=== PATIENT | male | born 1950 | race Caucasian/White ===

== ENCOUNTER 2023-07-22 14:08 | Inpatient (IN) | payer MEDICARE, SELFPAY ==
[2023-07-22] VITALS (14 sets, daily range): BP systolic 125–168; BP diastolic 65–95; PULSE 79–161; RESP 18–30; TEMP 36.6–37.6; O2SAT 92–97; BMI 19.5
--- NOTE | 2023-07-22 | ECG_ITS ---
Test Reason : REPEAT Blood Pressure : / mmHG Vent. Rate : 079 BPM Atrial Rate : 079 BPM P-R Int : 142 ms QRS Dur : 112 ms QT Int : 388 ms P-R-T Axes : 081 043 074 degrees QTc Int : 444 ms Sinus rhythm with Premature atrial complexes Right bundle branch block Abnormal ECG When compared with ECG of 22-JUL-2023 14:28, Normal sinus rhythm has replaced Atrial flutter with 2 to 1 block Referred By: Misty Harry Electronically Signed By:POLLY COY MD
--- NOTE | ~2023-07-22 | XR_ITS ---
EXAMINATION: XR CHEST CLINICAL INFORMATION: Shortness of breath. COMPARISON: None available. TECHNIQUE: AP view of the chest was obtained. XR/XR chest 1V FINDINGS/IMPRESSION: The lungs may be hyperinflated, raising the possibility of COPD. Mild diffuse interstitial prominence. It is uncertain whether this represents artifactual crowding of the interstitium versus true infiltrate. No focal infiltrate, effusion, or pneumothorax is appreciated. The heart appears normal in size. The aorta is mildly atherosclerotic.
--- NOTE | ~2023-07-22 | CT_ITS ---
EXAMINATION: CT ANGIOGRAM OF THE CHEST WITH AND WITHOUT CONTRAST (CT PULMONARY ANGIOGRAM FOR PE) CLINICAL INFORMATION: Reason for Exam hypoxia, tachycardia, elevated WBC count COMPARISON: None available. TECHNIQUE: Prior to contrast administration, noncontrast localization images were obtained. Subsequently, multidetector volumetric imaging was performed from the thoracic inlet to below the diaphragms following the administration of 65 mL Omnipaque 350 intravenous contrast. No contrast reaction reported Sagittal, coronal, and MIP oblique sagittal reformatted images were obtained on the CT workstation, uploaded to PACS, and reviewed. This CT examination was performed using dose optimization techniques as appropriate, variously including the following: *Automated exposure control *Adjustment of mA and/or kV according to patient size (this includes techniques or standardized protocols for targeted exams where dose is matched to indication/reason for exam; i.e. extremities or head) *Use of iterative reconstruction technique Total exam dose-length product 109 mGy-cm FINDINGS: QUALITY OF STUDY/CONTRAST BOLUS: Satisfactory. PULMONARY ARTERIES: No pulmonary emboli. THORACIC AORTA: No aneurysm. LUNG: Moderate to severe centrilobular and paraseptal emphysema. Bilateral bronchial wall thickening. Multiple foci of occlusive debris within peripheral bronchi as well as associated small regions of interstitial and airspace disease most notably involving the right middle and left lower lobe and, to a lesser extent, the right lower lobe. No suspicious lung nodule identified. PLEURA: No pleural effusion or pneumothorax. MEDIASTINUM: Normal heart size. No pericardial effusion. 1.2 cm subcarinal node and 1.2 cm right hilar node (image 34, series 7). 1.2 cm AP window node (image 30, series 7). 1.1 cm left hilar node (image 41). No evidence of septal bowing or right heart strain. CORONARY ARTERY CALCIFICATION: None visualized on this study. CHEST WALL/AXILLA: No axillary or internal mammary lymphadenopathy by size criteria. OSSEOUS STRUCTURES: No acute or suspicious osseous abnormality. UPPER ABDOMEN: Unremarkable. No reflux of contrast into the hepatic veins to suggest elevated right heart pressures. CT/CT angio chest PE protocol IMPRESSION: No evidence of pulmonary embolism. Moderate to severe centrilobular and paraseptal emphysema. Bilateral bronchial wall thickening. Multiple foci of occlusive debris within peripheral bronchi, suggesting aspirated material and/or inspissated secretions. Associated small regions of interstitial and airspace disease most notably involving the right middle and left lower lobe and, to a lesser extent, the right lower lobe, suggesting infiltrates and/or atelectasis. Mild mediastinal and bilateral hilar adenopathy, probably reactive. VTE: negative
--- NOTE | 2023-07-22 14:37 | PC.NURSE ---
Pt awake, alert and oriented. Breathing even, noted to be slightly labored with talking for long periods. Skin warm to the touch, rectal temp taken and is 99.6. Pt placed on bedside dot compliance specialist, noted to be sinus tach around 160. Pt reports SOB over the past few days worsening with exertion, hx of COPD no home O2. Pt reports recent fevers and cough with yellow sputum. Provider made aware of situation and vital signs immediately.
[2023-07-22] MEDS: Acetaminophen 325 MG TABLET 650 MG PO (14:58)
[2023-07-22 14:59] LABS: MANUAL DIFF FLAG NO
[2023-07-22] MEDS: methylPREDNISolone Sod Succ 125 MG/2 ML VIAL 60 MG IVPUSH (14:59)
[2023-07-22 15:00] LABS: Venous Blood Gas Refer to POC result
[2023-07-22] MEDS: levalbuterol HCL 1.25 MG/3 ML VIAL.NEB INHALE (15:00)
[2023-07-22] MEDS: cefTRIAXone sodium 1 GM in 0.9 % Sodium Chloride 50 ML IV (15:00)
[2023-07-22 15:01] LABS: Basophils Absolute Auto 0.1 X10*3/uL (0.0-0.2); Basophils Percent Auto 0.3 % (0-2); Eosinophils Percent Auto 0.1 % (0-4); Hematocrit 44.9 % (42.0-52.0); Hemoglobin 14.8 g/dl (14.0-18.0); Imm Gran Abs Auto 0.07 X10*3/uL (0.00-0.03); Imm Gran Pct Auto 0.4 % (0.0-0.4); Lymphocytes Absolute Auto 1.3 X10*3/uL (1.2-4.9); Lymphocytes Percent Auto 7.9 % (20-40); Mean Corpuscular Hemoglobin 28.4 pg (27.0-33.0); Mean Platelet Volume 11.5 fL (9.4-12.4); Monocytes Absolute Auto 1.4 X10*3/uL (0.1-1.2); Monocytes Percent Auto 8.4 % (2-11); Neutrophils Absolute Auto 13.6 x10*3/uL (2.0-8.3); Neutrophils Percent Auto 82.9 % (45-73); Platelet Count 205 X10*3/uL (160-400); Red Blood Count 5.22 X10*6/uL (4.60-5.80); Red Cell Distribution Width 15.9 % (11.0-16.0); VBG Base Excess 3.8 mmol/L; VBG HCO3 30 mmol/L (22-26); VBG pCO2 49 mmHg; VBG pH 7.38 (7.32-7.43); VBG pO2 49 mmHg; White Blood Count 16.4 X10*3/uL (4.8-10.8)
[2023-07-22] MEDS: 0.9 % Sodium Chloride 1,000 ML 999 ML IVCONT (15:02)
[2023-07-22 15:08] LABS: INTERNATIONAL NORM RATIO 1.2 (0.9-1.1); Prothrombin Time 14.3 SEC (11.1-13.3)
[2023-07-22 15:17] LABS: Lactic Acid 1.8 mmol/L (0.5-2.0)
[2023-07-22] MEDS: Metoprolol Tartrate 5 MG/5 ML VIAL 2.5 MG IVPUSH (15:22)
[2023-07-22 15:27] LABS: B Type Natriuretic Peptide 74 pg/mL (<100)
--- NOTE | 2023-07-22 15:27 | ECG_ITS ---
Test Reason : Tachy Blood Pressure : / mmHG Vent. Rate : 158 BPM Atrial Rate : 158 BPM P-R Int : 142 ms QRS Dur : 120 ms QT Int : 316 ms P-R-T Axes : 106 254 047 degrees QTc Int : 512 ms Poor data quality Possible Atrial flutter with 2 to 1 block Pulmonary disease pattern Right bundle branch block Abnormal ECG No previous ECGs available Referred By: Misty Harry Electronically Signed By:POLLY COY MD
[2023-07-22 15:29] LABS: COVID-19 Test Negative (Negative); IDNOW Serial# 08D9AD1C; Troponin-I High Sensitivity 16.5 ng/L (<3.5-35.0)
[2023-07-22 15:31] LABS: Alanine Aminotransferase 16 U/L (0-40); Albumin Level 3.5 g/dL (3.5-5.0); Alkaline Phosphatase 63 U/L (39-117); Anion Gap 17 (12-20); Aspartate Amino Transferase 15 U/L (5-37); Bilirubin Direct 0.2 mg/dL (0.0-0.5); Bilirubin Total 0.5 mg/dL (0.0-1.0); Blood Urea Nitrogen 22 mg/dL (9-16); Calcium 9.5 mg/dL (8.4-10.2); Carbon Dioxide 24 mmol/L (22-29); Chloride 98 mmol/L (96-108); Creatinine Clr Calc Pharmacy 73.3; Estimated Glomerular Filt Rate > 60; Glucose Random 120 mg/dL (60-115); Lipase 6 U/L (8-78); Sodium 135 mmol/L (135-145); Total Protein 7.3 g/dL (6.5-8.0)
[2023-07-22 15:32] LABS: IDNOW Serial# 9DB6401D; Influenza A Negative (Negative); Influenza B2 Negative (Negative)
[2023-07-22 15:43] LABS: TSH reflex Free T4 1.81 uIU/mL (0.32-4.0)
--- NOTE | 2023-07-22 15:51 | ED_ITS ---
HPI - SOB/Dyspnea General Chief Complaint: Dyspnea Stated Complaint: prod cough,low sat 80's ra,93% 6lpm,warm per ems Time Seen by Provider: 07/22/23 14:32 Source: patient and family Mode of arrival: EMS Limitations: no limitations History of Present Illness HPI Narrative: 73 yo male with PMH of emphysema who just saw a doctor for the first time in 10 years who comes in with c/o worsening cough, sputum, shortness of breath after starting trelegy trial from PCP (also started chantix). Has malaise and weakness does not feel well and feels he is getting worse. He cannot feel a rapid heart beat and has not had known issues with the heart. No sick contacts, no travel. He has never felt this ill before. RA sats 86% with EMS has not used home O2 before. MD elicited complaint: shortness of breath, cough and asthma attack Pertinent past history: COPD Onset (ago): week(s) Timing: progressively worsening Severity: moderate Exacerbating factors: exertion and coughing Relieving factors: oxygen, rest and bronchodilators Known history of: COPD Associated symptoms: cough, wheezing and sputum production Treatment prior to arrival: oxygen and bronchodilator Related Data Allergies Allergy/AdvReac Type Severity Reaction Status Date / Time No Known Allergies Allergy Verified 07/22/23 14:32 Review of Systems 2 Review of Systems: Constitutional : No Fever, No Chills, pos malaise ENT/Mouth : No Hoarseness, No sore throat, No Rhinorrhea Eyes: No Redness, No Discharge, No Vision Changes Cardiovascular : No Chest Pain, positive SOB, positive Dyspnea on Exertion, No Edema Respiratory : positive Cough, pos Sputum, positive Wheezing, Gastrointestinal : No Nausea, No Vomiting, No Diarrhea, No abdominal Pain Genitourinary : No Dysuria, No Hematuria Musculoskeletal : No joint pain, No Myalgias Skin : No rash Neuro : pos Weakness, No Numbness, No Headache Psych : No anxiety, depression Heme/Lymph: No Bruising, No Bleeding Endocrine : No Polyuria, No Polydipsia All other systems reviewed and are negative [facility] Past Medical History Attestation statement: The following information was validated with the patient. Medical History Emphysema lung Social History Social History (Updated 07/22/23 @ 15:52 by iMsty Harry DO) Patient Tobacco Use Status: Current everyday Tobacco user Smoked in Last 30 Days: Yes Use of substances other than those prescribed or required for medical reasons: No Advance Directives: No Advance Directives Information Provided: No Physical Exam 2 Vital Signs: Vital Signs: Last Vital Signs Temp 98.1 F 07/22/23 15:17 Pulse 84 07/22/23 16:54 Resp 24 H 07/22/23 15:59 BP 140/73 H 07/22/23 16:54 Pulse Ox 95 07/22/23 16:54 O2 Del Method Nasal Cannula 07/22/23 16:54 O2 Flow Rate 3 07/22/23 16:54 Oxygen Flow Rate 2 07/22/23 14:25 BMI result Body Mass Index 19.5 Appearance: Alert. Oriented X3. Mild acute distress. Eyes: Pupils equal, round and reactive to light. ENT: Pharynx normal. Neck: Normal inspection. Neck supple. CVS: tachycardic heart rate and rhythm. Pulses normal. Respiratory: Mild respiratory distress tachypnea and retractions. Breath sounds diminished throughout with insp and exp wheezes Abdomen: Soft and non-tender. Skin: Skin warm and dry. pale skin color. Normal skin turgor. Extremities: No lower extremity edema. No calf ttp Neuro: Oriented X 3. No motor deficit. No sensory deficit. Course Course Course Narrative: excellent response to low dose lopressor 2.5mg IV Medications Administered Discontinued Medications Generic Name Dose Route Start Last Admin Trade Name Freq PRN Reason Stop Dose Admin Acetaminophen 650 mg 07/22/23 14:34 07/22/23 14:58 Acetaminophen 325 Mg Tablet PO 07/22/23 14:35 650 mg ONCE ONE Administration Sodium Chloride 1,000 mls @ 999 mls/hr 07/22/23 14:45 07/22/23 15:02 Ns IVCONT 07/22/23 15:45 999 mls/hr .Q1H1M TEJ Administration Ceftriaxone Sodium 1 gm/ 50 mls @ 100 mls/hr 07/22/23 14:34 07/22/23 15:58 Sodium Chloride IV 07/22/23 15:03 Infused ONCE ONE Infusion Iohexol 65 ml 07/22/23 16:33 07/22/23 16:34 Iohexol 350 Mg/Ml 100 Ml Infus..Btl IV 07/22/23 16:34 65 ml ONCE ONE Administration Levalbuterol HCl 1.25 mg 07/22/23 14:43 07/22/23 15:00 Levalbuterol Hcl 1.25 Mg/3 Ml Vial.Neb INHALE 07/22/23 14:44 1.25 mg ONCE ONE Administration Methylprednisolone Sodium Succinate 60 mg 07/22/23 14:43 07/22/23 14:59 Methylprednisolone Sod Succ 125 Mg/2 Ml Vial IVPUSH 07/22/23 14:44 60 mg ONCE ONE Administration Metoprolol Tartrate 2.5 mg 07/22/23 15:11 07/22/23 15:22 Metoprolol Tartrate 5 Mg/5 Ml Vial IVPUSH 07/22/23 15:12 2.5 mg ONCE ONE Administration Medical Decision Making Medical Decision Making [facility] Narrative: 73 yo male smoker has not seen a doctor in 10 years - just saw PCP who started him on trial of trelegy and chantix last week notes now increased dyspnea, sputum production and malaise. He reports he just doesn't feel well. At this time labs, CXR, cultures, neb, IV steroids, IV fluids - IV lopressor for HR has no hx of arrhythmia. IV ceftriaxone and azithromycin ordered. Given tachycardia and smoking history will obtain CTA to rule out PE/malignancy Differential Diagnosis Differential Diagnoses: The differential diagnosis associated with the presentation includes COPD, hypoxia, PE, mass, pneumonia, viral syndrome Admission/Observation Consideration of admission/observation: Escalation of care including admission/observation considered will need admission for further management and workup Lab Data [facility] Lab Attestation statement: I reviewed the patient's lab results. 07/22/23 14:54 07/22/23 14:54 Labs: Lab Results 07/22/23 Range/Units 14:54 WBC 16.4 H (4.8-10.8) X10*3/uL RBC 5.22 (4.60-5.80) X10*6/uL Hgb 14.8 (14.0-18.0) g/dl Hct 44.9 (42.0-52.0) % MCV 86.0 (80.0-98.0) fL MCH 28.4 (27.0-33.0) pg MCHC 33.0 (31.0-36.0) g/dl RDW 15.9 (11.0-16.0) % Plt Count 205 (160-400) X10*3/uL MPV 11.5 (9.4-12.4) fL Immature Gran % (Auto) 0.4 (0.0-0.4) % Neut % (Auto) 82.9 H (45-73) % Lymph % (Auto) 7.9 L (20-40) % [place] % (Auto) 8.4 (2-11) % Eos % (Auto) 0.1 (0-4) % Baso % (Auto) 0.3 (0-2) % Lymph # (Auto) 1.3 (1.2-4.9) X10*3/uL [place] # (Auto) 1.4 H (0.1-1.2) X10*3/uL Eos # (Auto) 0.0 (0.0-0.4) X10*3/uL Baso # (Auto) 0.1 (0.0-0.2) X10*3/uL Abs Immat Gran (auto) 0.07 H (0.00-0.03) X10*3/uL Absolute Neuts (auto) 13.6 H (2.0-8.3) x10*3/uL Absolute Nucleated RBC 0.000 (0.0-0.012) X10*3/uL Nucleated RBC % (auto) 0.0 (0.0-0.2) /100WBC PT 14.3 H (11.1-13.3) SEC INR 1.2 H (0.9-1.1) VBG pH 7.38 (7.32-7.43) VBG pCO2 49 mmHg VBG pO2 49 mmHg VBG HCO3 30 H (22-26) mmol/L VBG O2 Saturation 78.0 % VBG Base Excess 3.8 mmol/L Sodium 135 (135-145) mmol/L Potassium 4.0 (3.3-5.1) mmol/L Chloride 98 (96-108) mmol/L Carbon Dioxide 24 (22-29) mmol/L Anion Gap 17 (12-20) BUN 22 H (9-16) mg/dL Creatinine 0.85 (0.5-1.4) mg/dL Estim Creat Clear Calc 73.3 Estimated GFR > 60 Random Glucose 120 H (60-115) mg/dL Lactic Acid 1.8 (0.5-2.0) mmol/L Calcium 9.5 (8.4-10.2) mg/dL Magnesium 2.0 (1.6-2.6) mg/dL Total Bilirubin 0.5 (0.0-1.0) mg/dL Direct Bilirubin 0.2 (0.0-0.5) mg/dL AST 15 (5-37) U/L ALT 16 (0-40) U/L Alkaline Phosphatase 63 (39-117) U/L Troponin I High Sens 16.5 (<3.5-35.0) ng/L B-Natriuretic Peptide 74 (<100) pg/mL Total Protein 7.3 (6.5-8.0) g/dL Albumin 3.5 (3.5-5.0) g/dL Lipase 6 L (8-78) U/L Procalcitonin 0.79 ng/mL TSH 1.81 (0.32-4.0) uIU/mL COVID-19 (DEE) Negative (Negative) COVID-19 Clin Com See Note Influenza Type A (DILLON) Negative (Negative) Influenza Type B (DILLON) Negative (Negative) Influenza A & B Note See Note Independent Interpretation I performed an independent interpretation of an: EKG, Plain X-Ray (?RLL opacity) and CT Scan (no saddle) Interpretation: Rate: 158 Rhythm: sinus tach [place]: left Normal P waves. Normal SHANTHI. RBBB ST T wave : lateral leads ST depression, no RANDY qTC: 512 prior studies: no prior The study has been interpreted contemporaneously by me. EKG #2 Rate: 79 Rhythm: NSR with sinus arrhythmia [place]: left Normal P waves. Normal SHANTHI. RBBB ST T wave : inverted t wave aVL, no RANDY qTC: 444 prior studies: no acute ischemia The study has been interpreted contemporaneously by me. . Radiology Impression Discussion of test interpretation with radiology: I have reviewed the radiologist's reading. Independent Historian Clinical information obtained from an independent historian. History obtained from or confirmed by: Spouse Critical Care Time Critical Care Time Critical Care Time: Yes Total Critical Care Time: 60 Attestation: nebs, IVF, IV lopressor improvements, admission I attest to this time spent taking care of the patient Discharge Plan Discharge Clinical Impression: Tachycardia, Hypoxia COPD (chronic obstructive pulmonary disease) Qualifiers: COPD type: emphysema Emphysema type: unspecified Qualified Code(s): J43.9 - Emphysema, unspecified Elevated WBC count Qualifiers: Leukocytosis type: unspecified Qualified Code(s): D72.829 - Elevated white blood cell count, unspecified Patient Disposition: Admitted As Inpatient
--- NOTE | 2023-07-22 16:00 | PC.NURSE ---
Pt alert and oriented, breathing more even and unlabored at this time. +cough and congestion noted. Pt continues to deny pain. Pts HR improved to 80s, NSR. Medicated per AUG.
[2023-07-22] MEDS: iohexoL 350 MG/ML 100 ML INFUS..BTL 65 ML IV (16:34)
[2023-07-22 16:45] LABS: Procalcitonin 0.79 ng/mL
[2023-07-22 17:03] LABS: Appearance Urine Clear; Color Urine Dark Yellow; Glucose Urine UA Negative (Negative); Leukocyte Esterase Urine Negative (Negative); Nitrite Urine Negative (Negative); PH 5.5 (5.0-9.0); UMIC TRIGGER UACC YES; Urine Blood Negative (Negative); Urine Ketones 15 mg/dL (Negative); Urine Protein 30 (1+) mg/dL (Neg-Trace)
[2023-07-22 17:15] LABS: Bacteria Urine None Seen (None Seen); RBC Urine 0-2 /HPF (0-2); WBC Urine 0-5 /HPF (0-5)
--- NOTE | 2023-07-22 18:26 | PHA.MEDREC ---
Pharmacy Consult ? Medication Reconciliation Pharmacy has completed the medication reconciliation. Pt endorses nicotine patch and gum when not smoking.
--- NOTE | 2023-07-22 18:29 | PM.IMHP ---
History of Present Illness Date of Service: 07/22/23 Attending physician on admission: Nellie Al Chief Complaint: SOB, cough, malaise Pt is a 73-year-old male with no significant PHM though only recently saw PCP for the first time in 10+ years who presents to the ED with?worsening SOB, productive cough, and malaise. Patient states a few weeks ago he saw a PCP for the 1st time in many years, and was started on a 14 day trial of Trelegy for suspected COPD. Patient is a lifelong smoker who started smoking at 13 years old and has an approximately 120+ pack-year smoking history. Patient states that a few days after starting Trelegy he began having worsening SOB and cough with increased mucus production. Patient immediately stopped using inhaler the symptoms continue to worsen. Patient states he has not been sleeping due to cough and feeling increased weakness and malaise. Reports he is never felt this ill before. EMS state patient was satting at 86% on RA when they arrived. Patient is not on home O2. Patient denies fever, chills, nausea, vomiting, abdominal pain. Denies chest pain/pressure, palpitations In the ED pt was tachycardic up to 161, tachypneic up to 30, and hypertensive up to 166/65, satting as low as 86% on RA. Labs were significant for leukocytosis of 16.4 otherwise grossly unremarkable. Stable H& H. No electrolyte abnormalities. Renal function WNL. Lactic acid WNL at 1.8. Hepatic function WNL. Troponin and BNP WNL. TSH WNL. Patient tested negative for COVID, and influenza type a and B. CXR showed hyperinflated lungs possibly secondary to COPD, though no focal infiltrate, effusion, or pneumothorax. CTA of chest found no evidence of PE, but did show moderate to severe central lobular and paraseptal emphysema, as well as bilateral bronchial wall thickening with multiple foci of occlusive debris suggesting aspirin material and or in suspected secretions. Also found areas of interstitial and airspace disease suggestive of infiltrates and/or atelectasis. Initial EKG demonstrated sinus tachycardia of 158 with RBBB while repeat EKG showed sinus rhythm with marked sinus arrhythmia and RBBB. Pt was treated with acetaminophen, Solu-Medrol, ceftriaxone, and azithromycin, levalbuterol, IVF, and metoprolol. Pt will be admitted to the hospital for treatment and further evaluation of acute hypoxic respiratory failure in the setting COPD exacerbation. Review of Systems Review of Systems: Shortness of breath Productive cough Malaise Difficulty sleeping Denies fever, chills, nausea,, abdominal pain No chest pain/pressure, palpitations [facility] Medical History Emphysema lung Social History (Updated 07/22/23 @ 15:52 by Misty Harry DO) Patient Tobacco Use Status: Current everyday Tobacco user Smoked in Last 30 Days: Yes Use of substances other than those prescribed or required for medical reasons: No Advance Directives: No Advance Directives Information Provided: No Meds Allergies Allergy/AdvReac Type Severity Reaction Status Date / Time No Known Allergies Allergy Verified 07/22/23 14:32 Active Medications: Current Medications Acetaminophen (Acetaminophen 325 Mg Tablet) 650 mg PO Q6H PRN PRN Reason: Pain, Mild (Pain Scale 1-3) Albuterol/Ipratropium (Albuterol/Iprat 2.5/0.5mg 3 Ml Ampul.Neb) 3 ml INHALE RQ4H WHILE AWAKE [facility] Docusate Sodium (Docusate Sodium 100 Mg Capsule) 100 mg PO DAILY PRN PRN Reason: Constipation Enoxaparin Sodium (Enoxaparin Sodium 40 Mg/0.4 Ml Syringe) 40 mg SUBCUT Q24H [facility] Melatonin (Melatonin 3 Mg Tablet) 6 mg PO BEDTIME PRN PRN Reason: Insomnia Methylprednisolone Sodium Succinate (Methylprednisolone Sod Succ 40 Mg/Ml Vial) 40 mg IVPUSH Q8H TEJ Ondansetron HCl (Ondansetron Hcl 4 Mg/2 Ml Vial) 4 mg IVPUSH Q8H PRN PRN Reason: Nausea and Vomiting Sodium Chloride (0.9 % Sodium Chloride Flush 3 Ml Syringe) 3 ml IVFLUSH QSHIFT [facility] Home Medications Medication Instructions Recorded Confirmed Last Taken Type nicotine (polacrilex) 4 mg gum 4 mg buccal Q1H PRN Nicotine 07/22/23 07/22/23 Unknown History Cravings nicotine 21 mg/24 hr daily 1 patch transdermal DAILY 07/22/23 07/22/23 Unknown History transdermal patch Physical Exam Vital Signs and Narrative: Vital Signs: Last Vital Signs Temp 98.3 F 07/22/23 17:21 Pulse 84 07/22/23 18:22 Resp 20 07/22/23 18:22 BP 154/79 H 07/22/23 18:22 Pulse Ox 95 07/22/23 18:22 O2 Del Method Nasal Cannula 07/22/23 18:22 O2 Flow Rate 3 07/22/23 18:22 Oxygen Flow Rate 2 07/22/23 14:25 BMI result Body Mass Index 19.5 Constitutional: Alert, thin, frail-looking, in no acute distress. Mental Status: Oriented to person, place and time. Eyes: Pupils are equal, round, and reactive to light. Ear, Nose, and Throat: Oropharynx clear, mucous membranes moist. Ears and nose without deformities. Trachea midline. Respiratory: Diminished lung sounds bilaterally with diffuse expiratory wheezing. Cardiovascular: S1, S2 regular. No murmurs, rubs, or gallops. Gastrointestinal: Abdomen soft, non-tender, non-distended. Normal bowel sounds. Neurologic: Cranial nerves II-XII are grossly intact bilaterally. No focal neurological deficits. Moves all extremities spontaneously. Skin: Warm, dry. Musculoskeletal: No cyanosis or clubbing. Extremities: No edema. Psychiatric: Normal mood and affect. Results Labs 07/22/23 14:54 07/22/23 14:54 Labs: Laboratory Results - last 24 hr 07/22/23 07/22/23 14:54 16:38 MCV 86.0 MCH 28.4 MCHC 33.0 RDW 15.9 Plt Count 205 MPV 11.5 Immature Gran % (Auto) 0.4 Neut % (Auto) 82.9 H Lymph % (Auto) 7.9 L [place] % (Auto) 8.4 Eos % (Auto) 0.1 Baso % (Auto) 0.3 Lymph # (Auto) 1.3 [place] # (Auto) 1.4 H Eos # (Auto) 0.0 Baso # (Auto) 0.1 Abs Immat Gran (auto) 0.07 H Absolute Neuts (auto) 13.6 H Absolute Nucleated RBC 0.000 Nucleated RBC % (auto) 0.0 PT 14.3 H INR 1.2 H VBG pH 7.38 VBG pCO2 49 VBG pO2 49 VBG HCO3 30 H VBG O2 Saturation 78.0 VBG Base Excess 3.8 Anion Gap 17 Estim Creat Clear Calc 73.3 Estimated GFR > 60 Random Glucose 120 H Lactic Acid 1.8 Calcium 9.5 Magnesium 2.0 Total Bilirubin 0.5 Direct Bilirubin 0.2 AST 15 ALT 16 Alkaline Phosphatase 63 B-Natriuretic Peptide 74 Total Protein 7.3 Albumin 3.5 Lipase 6 L Procalcitonin 0.79 TSH 1.81 Urine Color Dark Yellow Urine Appearance Clear Urine pH 5.5 Ur Specific [place] 1.020 Urine Protein 30 (1+) H Urine Glucose (UA) Negative Urine Ketones 15 Urine Blood Negative Urine Nitrite Negative Ur Leukocyte Esterase Negative Urine RBC 0-2 Urine WBC 0-5 Ur Squamous Epith Cells 3-5 Urine Bacteria None Seen Hyaline Casts 11-20 COVID-19 (DEE) Negative COVID-19 Clin Com See Note Influenza Type A ([facility]ON) Negative Influenza Type B ([facility]ON) Negative Influenza A & B Note See Note Imaging Radiologist's Impressions: Impressions Chest X-Ray 07/22/23 15:32 FINDINGS/IMPRESSION: The lungs may be hyperinflated, raising the possibility of COPD. Mild diffuse interstitial prominence. It is uncertain whether this represents artifactual crowding of the interstitium versus true infiltrate. No focal infiltrate, effusion, or pneumothorax is appreciated. The heart appears normal in size. The aorta is mildly atherosclerotic. Chest CTA 07/22/23 16:37 IMPRESSION: No evidence of pulmonary embolism. Moderate to severe centrilobular and paraseptal emphysema. Bilateral bronchial wall thickening. Multiple foci of occlusive debris within peripheral bronchi, suggesting aspirated material and/or inspissated secretions. Associated small regions of interstitial and airspace disease most notably involving the right middle and left lower lobe and, to a lesser extent, the right lower lobe, suggesting infiltrates and/or atelectasis. Mild mediastinal and bilateral hilar adenopathy, probably reactive. VTE: negative Assessment and Plan (1) COPD (chronic obstructive pulmonary disease): Qualifiers: COPD type: emphysema Emphysema type: unspecified Qualified Code(s): J43.9 - Emphysema, unspecified Status: Acute (2) Hypoxia: Status: Acute Plan Pt is a 73-year-old male with no significant PHM though only recently saw PCP for the first time in 10+ years who presents to the ED with?worsening SOB, productive cough, and malaise. Pt will be admitted to the hospital for treatment and further evaluation of acute hypoxic respiratory failure in the setting COPD exacerbation. Acute hypoxic respiratory failure in setting of COPD exacerbation Patient with increasing shortness of breath, RIVAS, productive cough, malaise for past 5+ days, satting as low as 86% on RA Pt with 120+ pack-year hx of smoking Recently re-established with clinician care after 10+ years, has patient safety sitter apt soon Will treat with DuoNeb, Solu-Medrol, guaifenesin Patient does not meet sepsis criteria: Tachycardia tachypnea secondary to albuterol use, not sepsis; lactic acid WNL Pt given IVF and started on broad-spectrum abx in the ED Will empirically cover with ceftriaxone and azithromycin, started 07/22/2023 Titrate supplemental O2>92, wean as tolerated Consider pulmonology consult if pt's condition does not improve or if it worsens Home oxygen evaluation prior to discharge Patient otherwise has no chronic medical conditions that he has been diagnosed with and is not on any home medications. Full Code Attending:?Dr. Al DVT Prophylaxis: Lovenox Pt will require a hospitalization of at least two nights for treatment and further evaluation of?acute hypoxic respiratory failure in the setting of acute COPD exacerbation. Pt patient requires hospitalized care for treatment with supplemental oxygen, IV steroids, nebulized breathing treatments, and IV antibiotics. Quality Stroke Does the patient have a stroke diagnosis?: No VTE Prior VTE?: No VTE Risk Level:: Medical - moderate - high VTE Device Contraindication: Treatment Not Indicated VTE Drug Contraindication: N/A - Med Ordered
[2023-07-22] MEDS: Albuterol/Iprat 2.5/0.5MG 3 ML AMPUL.NEB INHALE (19:42)
[2023-07-22] MEDS: methylPREDNISolone Sod Succ 40 MG/ML VIAL IVPUSH (20:10)
[2023-07-22] MEDS: Enoxaparin Sodium 40 MG/0.4 ML SYRINGE SUBCUT (20:10)
[2023-07-23] VITALS (13 sets, daily range): BP systolic 153–187; BP diastolic 69–92; PULSE 72–93; RESP 18–24; TEMP 36.1–37.3; O2SAT 91–96
[2023-07-23] MEDS: 0.9 % Sodium Chloride Flush 3 ML SYRINGE IVFLUSH ×3 (00:24→20:51)
[2023-07-23] MEDS: methylPREDNISolone Sod Succ 40 MG/ML VIAL IVPUSH ×3 (04:37→20:50)
[2023-07-23] MEDS: Albuterol/Iprat 2.5/0.5MG 3 ML AMPUL.NEB INHALE ×4 (08:18→20:03)
--- NOTE | 2023-07-23 08:48 | MHC.CM.PN ---
CM met with Patient at bedside and addressed IMM with him, providing Patient with the original and a copy has been placed on the chart. 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 Home/self care is the goal and CM has initiated and will follow for dc planning. PCP is Dr. Jevon Cullen in [place] @ [phone].
[2023-07-23] MEDS: Nicotine 21 MG PATCH.TD24 TRANSDERMA (08:51)
[2023-07-23] MEDS: Loratadine 10 MG TABLET PO (08:51)
[2023-07-23] MEDS: cefTRIAXone sodium 1 GM in 0.9 % Sodium Chloride 50 ML IV (08:57)
[2023-07-23] MEDS: Azithromycin 500 MG in 0.9 % Sodium Chloride 250 ML 125 MG IV (10:00)
--- NOTE | 2023-07-23 14:06 | MHC.CM.PN ---
CM met with Patient and his Ex- at bedside. CM met with RT department prior to entering Patient's room; RT is already preparing for Patient possibly needing home O2 for the ride home to [place] and once home in [place]. CM was able to reassure that if home O2 is ultimately needed that the RT staff will certainly assist with this. Ex- is also needing to be back home soon to attend to her own scheduled medical procedures; CM inquired if Ex- needed to return home prior to Patient being medically cleared for dc, is there a family member to transport Patient to home. Patient and his were very open to this possibility. CM will follow.
--- NOTE | 2023-07-23 14:25 | HO.PM.IMPN ---
Subjective Subjective Date of Service: 07/23/23 Interval History: copd excerebation Review of Systems sob and cough somewhat improving still hypoxic with minimal excersion Physical Exam Vital Signs: Vital Signs: Last Vital Signs Temp 98.6 F 07/23/23 11:01 Pulse 84 07/23/23 11:33 Resp 20 07/23/23 11:33 BP 163/69 H 07/23/23 11:01 Pulse Ox 95 07/23/23 11:01 O2 Del Method Nasal Cannula 07/23/23 11:01 O2 Flow Rate 2 07/23/23 11:01 Oxygen Flow Rate 2 07/22/23 14:25 BMI result Body Mass Index 19.5 Appearance: Alert.? Oriented X3.? cvs: rrr, [id number] , no murmur res: air entry dimished ,has b/l wheezing abd: no rebound or guarding ,nt, bs present. ext pulses present , no cyanosis . neuro: axo3 , nonfocal. Objective Data Active Medications Acetaminophen (Acetaminophen 325 Mg Tablet) 650 mg PO Q6H PRN PRN Reason: Pain, Mild (Pain Scale 1-3) Albuterol/Ipratropium (Albuterol/Iprat 2.5/0.5mg 3 Ml Ampul.Neb) 3 ml INHALE RQ4H WHILE AWAKE [facility] Last Admin: 07/23/23 11:31 Dose: 3 ml Documented By: JULIA Docusate Sodium (Docusate Sodium 100 Mg Capsule) 100 mg PO DAILY PRN PRN Reason: Constipation Enoxaparin Sodium (Enoxaparin Sodium 40 Mg/0.4 Ml Syringe) 40 mg SUBCUT Q24H [facility] Last Admin: 07/22/23 20:10 Dose: 40 mg Documented By: LICHA Guaifenesin (Guaifenesin 200 Mg/10 Ml 10 Ml Liquid) 10 ml PO Q6H PRN PRN Reason: Cough Guaifenesin/Dextromethorphan (Guaifenesin Dm 600/30 1 Tab Tab.Er.12h) 1 tab PO BID PRN PRN Reason: Cough Ceftriaxone Sodium 1 gm/ (Sodium Chloride) 50 mls @ 100 mls/hr IV Q24H [facility] Last Infusion: 07/23/23 09:27 Dose: Infused Documented By: SEGUN Azithromycin 500 mg/ Sodium (Chloride) 250 mls @ 125 mls/hr IV Q24H [facility] Last Infusion: 07/23/23 12:00 Dose: Infused Documented By: SEGUN Loratadine (Loratadine 10 Mg Tablet) 10 mg PO DAILY [facility] Last Admin: 07/23/23 08:51 Dose: 10 mg Documented By: SEGUN Melatonin (Melatonin 3 Mg Tablet) 6 mg PO BEDTIME PRN PRN Reason: Insomnia Methylprednisolone Sodium Succinate (Methylprednisolone Sod Succ 40 Mg/Ml Vial) 40 mg IVPUSH Q8H [facility] Last Admin: 07/23/23 13:07 Dose: 40 mg Documented By: SEGUN Nicotine (Nicotine 21 Mg Patch.Td24) 21 mg TRANSDERMA DAILY [facility] Last Admin: 07/23/23 08:51 Dose: 21 mg Documented By: SEGUN Nicotine Polacrilex (Nicotine Polacrilex 2 Mg Gum) 4 mg BUCCAL Q1H PRN PRN Reason: Nicotine Cravings Ondansetron HCl (Ondansetron Hcl 4 Mg/2 Ml Vial) 4 mg IVPUSH Q8H PRN PRN Reason: Nausea and Vomiting Sodium Chloride (0.9 % Sodium Chloride Flush 3 Ml Syringe) 3 ml IVFLUSH QSHIFT [facility] Last Admin: 07/23/23 07:21 Dose: 3 ml Documented By: BLANQUITA Labs 07/22/23 14:54 07/22/23 14:54 Labs: Laboratory Results - last 24 hr 07/22/23 07/22/23 14:54 16:38 MCV 86.0 MCH 28.4 MCHC 33.0 RDW 15.9 Plt Count 205 MPV 11.5 Immature Gran % (Auto) 0.4 Neut % (Auto) 82.9 H Lymph % (Auto) 7.9 L [place] % (Auto) 8.4 Eos % (Auto) 0.1 Baso % (Auto) 0.3 Lymph # (Auto) 1.3 [place] # (Auto) 1.4 H Eos # (Auto) 0.0 Baso # (Auto) 0.1 Abs Immat Gran (auto) 0.07 H Absolute Neuts (auto) 13.6 H Absolute Nucleated RBC 0.000 Nucleated RBC % (auto) 0.0 PT 14.3 H INR 1.2 H VBG pH 7.38 VBG pCO2 49 VBG pO2 49 VBG HCO3 30 H VBG O2 Saturation 78.0 VBG Base Excess 3.8 Anion Gap 17 Estim Creat Clear Calc 73.3 Estimated GFR > 60 Random Glucose 120 H Lactic Acid 1.8 Calcium 9.5 Magnesium 2.0 Total Bilirubin 0.5 Direct Bilirubin 0.2 AST 15 ALT 16 Alkaline Phosphatase 63 B-Natriuretic Peptide 74 Total Protein 7.3 Albumin 3.5 Lipase 6 L Procalcitonin 0.79 TSH 1.81 Urine Color Dark Yellow Urine Appearance Clear Urine pH 5.5 Ur Specific [place] 1.020 Urine Protein 30 (1+) H Urine Glucose (UA) Negative Urine Ketones 15 Urine Blood Negative Urine Nitrite Negative Ur Leukocyte Esterase Negative Urine RBC 0-2 Urine WBC 0-5 Ur Squamous Epith Cells 3-5 Urine Bacteria None Seen Hyaline Casts 11-20 COVID-19 (DEE) Negative COVID-19 Clin Com See Note Influenza Type A (DILLON) Negative Influenza Type B (DILLON) Negative Influenza A & B Note See Note Assessment and Plan (1) Hypoxia: Status: Acute (2) COPD (chronic obstructive pulmonary disease): Status: Acute Plan 73-year-old male with no significant PHM though only recently saw PCP for the first time in 10+ years who presents to the ED with?worsening SOB, productive cough, and malaise. Pt will be admitted to the hospital for treatment and further evaluation of acute hypoxic respiratory failure in the setting COPD exacerbation. Acute hypoxic respiratory failure in setting of COPD exacerbation shortness of breath,productive cough, malaise for past 5+ days, desats 120+ pack-year hx of smoking Recently re-established with clinician care after 10+ years, has propagator apt soon continue DuoNeb, Solu-Medrol, guaifenesin,antibiotics(ceftraixone/azithromycin-07/22/23),supplemental O2>92, wean as tolerated Consider pulmonology consult if pt's condition does not improve or if it worsens. Patient otherwise has no chronic medical conditions that he has been diagnosed with and is not on any home medications. Full Code DVT Prophylaxis: Lovenox ongoing hospitalization need for treatment and further evaluation of?acute hypoxic respiratory failure in the setting of acute COPD exacerbation-oxygen need, nebs,steriods ,antibiotics .possible need home oxygen eval upon discharge. Quality Stroke Does the patient have a stroke diagnosis?: No VTE Prior VTE?: No VTE Risk Level:: Medical - moderate - high VTE Device Contraindication: Treatment Not Indicated VTE Drug Contraindication: N/A - Med Ordered
[2023-07-23] MEDS: amLODIPine Besylate 2.5 MG TABLET PO (16:58)
[2023-07-23] MEDS: Enoxaparin Sodium 40 MG/0.4 ML SYRINGE SUBCUT (20:50)
[2023-07-23] MEDS: Labetalol HCL 100 MG/20 ML VIAL 10 MG IVPUSH (23:29)
[2023-07-24] VITALS (10 sets, daily range): BP systolic 142–186; BP diastolic 58–90; PULSE 70–91; RESP 18–24; TEMP 36.6–37.1; O2SAT 87–99; BMI 19.5
[2023-07-24] MEDS: hydrALAZINE HCl 20 MG/ML VIAL IVPUSH (03:03)
[2023-07-24] MEDS: methylPREDNISolone Sod Succ 40 MG/ML VIAL IVPUSH (04:55)
[2023-07-24] MEDS: Albuterol/Iprat 2.5/0.5MG 3 ML AMPUL.NEB INHALE ×4 (07:38→20:24)
[2023-07-24] MEDS: amLODIPine Besylate 5 MG TABLET PO ×2 (08:38→15:44)
[2023-07-24] MEDS: 0.9 % Sodium Chloride Flush 3 ML SYRINGE IVFLUSH ×3 (08:39→20:00)
[2023-07-24] MEDS: Nicotine 21 MG PATCH.TD24 TRANSDERMA (08:39)
[2023-07-24] MEDS: Loratadine 10 MG TABLET PO (08:39)
[2023-07-24] MEDS: guaiFENesin DM 600/30 1 TAB TAB.ER.12H PO ×2 (08:45→21:16)
[2023-07-24] MEDS: LORazepam 0.5 MG TABLET PO ×2 (08:45→21:16)
[2023-07-24] MEDS: cefTRIAXone sodium 1 GM in 0.9 % Sodium Chloride 50 ML IV (08:49)
[2023-07-24] MEDS: predniSONE 20 MG TABLET 40 MG PO (09:30)
[2023-07-24] MEDS: Azithromycin 500 MG in 0.9 % Sodium Chloride 250 ML 125 MG IV (09:34)
--- NOTE | 2023-07-24 10:45 | MHC.CLN ---
RE: CONSULT PT IS MODERATELY MALNOURISHED PT WITH MILD DEPLETION IN SUBCUTANEOUS FAT AND MUSCLE MASS WITH INCREASED NUTRITION NEEDS R/T COPD PT WITH NO PREVIOUS WT HX. PT UNABLE TO GIVE SPECIFICS OF USUAL BODY WEIGHT. PT DOES NOT WEIGH HIMSELF AT HOME AND RECENTLY ESTABLISHED PCP. DIET RX: REGULAR-APPROPRIATE RECOMMEND ADDING MAGIC CUP TID TO INCREASE KCALS MONITOR PO INTAKE AND ENCOURAGE SUPPLEMENTS SEE ALSO FULL CLINICAL NUTRITION ASSESSMENT
[2023-07-24] MEDS: Fluticasone/Vilanterol 100/25 BLST.W.DEV 1 PUFF INHALE (11:11)
--- NOTE | 2023-07-24 11:16 | P.PNIM_ITS ---
Subjective Subjective Date of Service: 07/24/23 Interval History: copd exceerbation ,uncontrolled htn Review of Systems sob some similar to yesterday,has cough,seems anxious elevated bp no fever Physical Exam 2 Vital Signs: Vital Signs: Last Vital Signs Temp 98.4 F 07/24/23 07:53 Pulse 86 07/24/23 11:13 Resp 20 07/24/23 11:13 BP 186/90 H 07/24/23 07:53 Pulse Ox 99 07/24/23 07:53 O2 Del Method Room Air 07/24/23 04:00 O2 Flow Rate 2 07/23/23 23:38 Oxygen Flow Rate 2 07/22/23 14:25 BMI result Body Mass Index 19.5 Appearance: Alert.? Oriented X3.? cvs: rrr, [id number] . res: air entry dimished ,has b/l wheezing abd: no rebound or guarding ,nt, bs present. ext pulses present , no cyanosis . neuro: axo3 , nonfocal. Objective Data Active Medications Acetaminophen (Acetaminophen 325 Mg Tablet) 650 mg PO Q6H PRN PRN Reason: Pain, Mild (Pain Scale 1-3) Albuterol Sulfate (Albuterol Sulfate 90 Mcg 8 Gm Inhaler) 1 puff INHALE RQ4H PRN PRN Reason: sob Albuterol/Ipratropium (Albuterol/Iprat 2.5/0.5mg 3 Ml Ampul.Neb) 3 ml INHALE RQ4H WHILE AWAKE [facility] Last Admin: 07/24/23 11:11 Dose: 3 ml Documented By: BONNY Amlodipine Besylate (Amlodipine Besylate 5 Mg Tablet) 5 mg PO DAILY [facility]; Protocol Last Admin: 07/24/23 08:38 Dose: 5 mg Documented By: SEGUN Docusate Sodium (Docusate Sodium 100 Mg Capsule) 100 mg PO DAILY PRN PRN Reason: Constipation Enoxaparin Sodium (Enoxaparin Sodium 40 Mg/0.4 Ml Syringe) 40 mg SUBCUT Q24H [facility] Last Admin: 07/23/23 20:50 Dose: 40 mg Documented By: KINJALTRJose Fluticasone/Vilanterol (Fluticasone/Vilanterol 100/25 Blst.W.Dev) 1 puff INHALE RDAILY [facility] Last Admin: 07/24/23 11:11 Dose: 1 puff Documented By: BONNY Guaifenesin (Guaifenesin 200 Mg/10 Ml 10 Ml Liquid) 10 ml PO Q6H PRN PRN Reason: Cough Guaifenesin/Dextromethorphan (Guaifenesin Dm 600/30 1 Tab Tab.Er.12h) 1 tab PO BID PRN PRN Reason: Cough Last Admin: 07/24/23 08:45 Dose: 1 tab Documented By: SEGUN Ceftriaxone Sodium 1 gm/ (Sodium Chloride) 50 mls @ 100 mls/hr IV Q24H [facility] Last Admin: 07/24/23 08:49 Dose: 100 mls/hr Documented By: SEGUN Azithromycin 500 mg/ Sodium (Chloride) 250 mls @ 125 mls/hr IV Q24H [facility] Last Admin: 07/24/23 09:34 Dose: 125 mls/hr Documented By: SEGUN Loratadine (Loratadine 10 Mg Tablet) 10 mg PO DAILY [facility] Last Admin: 07/24/23 08:39 Dose: 10 mg Documented By: SEGUN Lorazepam (Lorazepam 0.5 Mg Tablet) 0.5 mg PO Q4H PRN PRN Reason: Anxiety Last Admin: 07/24/23 08:45 Dose: 0.5 mg Documented By: SEGUN Melatonin (Melatonin 3 Mg Tablet) 6 mg PO BEDTIME PRN PRN Reason: Insomnia Nicotine (Nicotine 21 Mg Patch.Td24) 21 mg TRANSDERMA DAILY [facility] Last Admin: 07/24/23 08:39 Dose: 21 mg Documented By: SEGUN Nicotine Polacrilex (Nicotine Polacrilex 2 Mg Gum) 4 mg BUCCAL Q1H PRN PRN Reason: Nicotine Cravings Ondansetron HCl (Ondansetron Hcl 4 Mg/2 Ml Vial) 4 mg IVPUSH Q8H PRN PRN Reason: Nausea and Vomiting Prednisone (Prednisone 20 Mg Tablet) 40 mg PO DAILY [facility] Last Admin: 07/24/23 09:30 Dose: 40 mg Documented By: SEGUN Sodium Chloride (0.9 % Sodium Chloride Flush 3 Ml Syringe) 3 ml IVFLUSH QSHIFT [facility] Last Admin: 07/24/23 08:39 Dose: 3 ml Documented By: SEGUN Labs 07/22/23 14:54 07/22/23 14:54 Microbiology Microbiology Results: Microbiology 07/22/23 14:57 Blood Culture - Preliminary Blood - Venous No growth after 24 hours. 07/22/23 14:57 Blood Culture - Preliminary Blood - Venous No growth after 24 hours. 07/23/23 13:25 Gram Stain - Final Sputum - Expectorated Assessment and Plan (1) Hypoxia: Status: Acute (2) COPD (chronic obstructive pulmonary disease): Status: Acute Plan 73-year-old male with no significant PHM though only recently saw PCP for the first time in 10+ years who presents to the ED with?worsening SOB, productive cough, and malaise. Pt will be admitted to the hospital for treatment and further evaluation of acute hypoxic respiratory failure in the setting COPD exacerbation. 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 uncontrolled htn: adjusted amlodipine to 5mg ,moniter bp closely Patient otherwise has no chronic medical conditions that he has been diagnosed with and is not on any home medications. Full Code DVT Prophylaxis: Lovenox ongoing hospitalization need for treatment and further evaluation of?acute hypoxic respiratory failure in the setting of acute COPD exacerbation-oxygen need, nebs,steriods ,antibiotics .possible need home oxygen eval upon discharge. Quality Stroke Does the patient have a stroke diagnosis?: No VTE Prior VTE?: No VTE Risk Level:: Medical - moderate - high VTE Device Contraindication: Treatment Not Indicated VTE Drug Contraindication: N/A - Med Ordered
[2023-07-24] MEDS: Labetalol HCL 100 MG/20 ML VIAL 10 MG IVPUSH (19:59)
[2023-07-24] MEDS: Enoxaparin Sodium 40 MG/0.4 ML SYRINGE SUBCUT (19:59)
[2023-07-25] VITALS (12 sets, daily range): BP systolic 140–182; BP diastolic 68–84; PULSE 72–98; RESP 18–20; TEMP 36.6–37.2; O2SAT 87–97
[2023-07-25] MEDS: Fluticasone/Vilanterol 100/25 BLST.W.DEV 1 PUFF INHALE (07:39)
[2023-07-25] MEDS: Albuterol/Iprat 2.5/0.5MG 3 ML AMPUL.NEB INHALE ×4 (07:39→20:01)
[2023-07-25] MEDS: predniSONE 20 MG TABLET 40 MG PO (08:09)
[2023-07-25] MEDS: amLODIPine Besylate 10 MG TABLET PO (08:09)
[2023-07-25] MEDS: Loratadine 10 MG TABLET PO (08:09)
[2023-07-25] MEDS: 0.9 % Sodium Chloride Flush 3 ML SYRINGE IVFLUSH (08:09)
[2023-07-25] MEDS: cefTRIAXone sodium 1 GM in 0.9 % Sodium Chloride 50 ML IV (08:09)
[2023-07-25] MEDS: Azithromycin 500 MG in 0.9 % Sodium Chloride 250 ML 125 MG IV (08:10)
[2023-07-25] MEDS: Nicotine 21 MG PATCH.TD24 TRANSDERMA (08:10)
[2023-07-25 10:03] LABS: Hematocrit 42.4 % (42.0-52.0); Hemoglobin 14.1 g/dl (14.0-18.0); Mean Corpuscular HGB Conc 33.3 g/dl (31.0-36.0); Mean Corpuscular Hemoglobin 28.7 pg (27.0-33.0); Mean Corpuscular Volume 86.4 fL (80.0-98.0); Mean Platelet Volume 11.3 fL (9.4-12.4); Platelet Count 206 X10*3/uL (160-400); Red Blood Count 4.91 X10*6/uL (4.60-5.80); Red Cell Distribution Width 16.4 % (11.0-16.0); White Blood Count 13.4 X10*3/uL (4.8-10.8)
[2023-07-25 10:41] LABS: Procalcitonin 0.16 ng/mL
--- NOTE | 2023-07-25 11:28 | MHC.CLN ---
F/U PT IS MODERATELY MALNOURISHED SEE FULL CLINICAL NUTRITION ASSESSMENT DATED 07/24/23 PO INTAKE 50-100% DIET RX: REGULAR-APPROPRIATE PT RECEIVING MAGIC CUP TID TO INCREASE KCALS MONITOR PO INTAKE AND ENCOURAGE SUPPLEMENTS
[2023-07-25] MEDS: lisinopriL 5 MG TABLET PO (12:26)
--- NOTE | 2023-07-25 13:11 | P.PNIM_ITS ---
Subjective Subjective Date of Service: 07/25/23 Interval History: dyspneic with exertion, requiring 3L O2 with ambulation no fever Review of Systems Review of Systems: Yes all other systems are reviewed and are negative Physical Exam 2 Vital Signs: Vital Signs: Last Vital Signs Temp 98.4 F 07/25/23 11:44 Pulse 84 07/25/23 11:45 Resp 18 07/25/23 11:45 BP 182/72 H 07/25/23 11:44 Pulse Ox 97 07/25/23 11:44 O2 Del Method Room Air 07/25/23 11:44 O2 Flow Rate 2 07/24/23 19:43 Oxygen Flow Rate 2 07/22/23 14:25 BMI result Body Mass Index 19.5 Gen: in no acute distress HEENT: sclera anicteric, moist mucus membranes Neck: supple Lungs: diminished Heart: regular rate and rhythm, no murmurs Abd: soft, non-tender, non-distended Ext: no edema Skin: warm/well-perfused Neuro: alert and oriented x3, no focal findings Psych: appropriate affect Objective Data Active Medications Acetaminophen (Acetaminophen 325 Mg Tablet) 650 mg PO Q6H PRN PRN Reason: Pain, Mild (Pain Scale 1-3) Albuterol Sulfate (Albuterol Sulfate 90 Mcg 8 Gm Inhaler) 1 puff INHALE RQ4H PRN PRN Reason: sob Albuterol/Ipratropium (Albuterol/Iprat 2.5/0.5mg 3 Ml Ampul.Neb) 3 ml INHALE RQ4H WHILE AWAKE [facility] Last Admin: 07/25/23 11:41 Dose: 3 ml Documented By: BONNY Amlodipine Besylate (Amlodipine Besylate 10 Mg Tablet) 10 mg PO DAILY [facility]; Protocol Last Admin: 07/25/23 08:09 Dose: 10 mg Documented By: SUMEET Docusate Sodium (Docusate Sodium 100 Mg Capsule) 100 mg PO DAILY PRN PRN Reason: Constipation Enoxaparin Sodium (Enoxaparin Sodium 40 Mg/0.4 Ml Syringe) 40 mg SUBCUT Q24H [facility] Last Admin: 07/24/23 19:59 Dose: 40 mg Documented By: STEPHANIE Fluticasone/Vilanterol (Fluticasone/Vilanterol 100/25 Blst.W.Dev) 1 puff INHALE RDAILY [facility] Last Admin: 07/25/23 07:39 Dose: 1 puff Documented By: THELMA Guaifenesin (Guaifenesin 200 Mg/10 Ml 10 Ml Liquid) 10 ml PO Q6H PRN PRN Reason: Cough Guaifenesin/Dextromethorphan (Guaifenesin Dm 600/30 1 Tab Tab.Er.12h) 1 tab PO BID PRN PRN Reason: Cough Last Admin: 07/24/23 21:16 Dose: 1 tab Documented By: STEPHANIE Ceftriaxone Sodium 1 gm/ (Sodium Chloride) 50 mls @ 100 mls/hr IV Q24H [facility] Last Infusion: 07/25/23 08:42 Dose: Infused Documented By: SUMEET Azithromycin 500 mg/ Sodium (Chloride) 250 mls @ 125 mls/hr IV Q24H [facility] Last Infusion: 07/25/23 10:17 Dose: Infused Documented By: SUMEET Lisinopril (Lisinopril 5 Mg Tablet) 5 mg PO DAILY [facility]; Protocol Last Admin: 07/25/23 12:26 Dose: 5 mg Documented By: SUMEET Loratadine (Loratadine 10 Mg Tablet) 10 mg PO DAILY [facility] Last Admin: 07/25/23 08:09 Dose: 10 mg Documented By: SUMEET Lorazepam (Lorazepam 0.5 Mg Tablet) 0.5 mg PO Q4H PRN PRN Reason: Anxiety Last Admin: 07/24/23 21:16 Dose: 0.5 mg Documented By: STEPHANIE Melatonin (Melatonin 3 Mg Tablet) 6 mg PO BEDTIME PRN PRN Reason: Insomnia Nicotine (Nicotine 21 Mg Patch.Td24) 21 mg TRANSDERMA DAILY [facility] Last Admin: 07/25/23 08:10 Dose: 21 mg Documented By: SUMEET Nicotine Polacrilex (Nicotine Polacrilex 2 Mg Gum) 4 mg BUCCAL Q1H PRN PRN Reason: Nicotine Cravings Ondansetron HCl (Ondansetron Hcl 4 Mg/2 Ml Vial) 4 mg IVPUSH Q8H PRN PRN Reason: Nausea and Vomiting Prednisone (Prednisone 20 Mg Tablet) 40 mg PO DAILY [facility] Last Admin: 07/25/23 08:09 Dose: 40 mg Documented By: SUMEET Sodium Chloride (0.9 % Sodium Chloride Flush 3 Ml Syringe) 3 ml IVFLUSH QSHIFT [facility] Last Admin: 07/25/23 08:09 Dose: 3 ml Documented By: SUMEET Labs 07/25/23 09:12 07/22/23 14:54 Labs: Laboratory Results - last 24 hr 07/25/23 07/25/23 09:11 09:12 MCV 86.4 MCH 28.7 MCHC 33.3 RDW 16.4 H Plt Count 206 MPV 11.3 Absolute Nucleated RBC 0.000 Nucleated RBC % (auto) 0.0 Procalcitonin 0.16 Microbiology Microbiology Results: Microbiology 07/23/23 13:25 Gram Stain - Final Sputum - Expectorated Sputum Culture - Preliminary Gram negative ama 07/22/23 14:57 Blood Culture - Preliminary Blood - Venous No growth after 48 hours. 07/22/23 14:57 Blood Culture - Preliminary Blood - Venous No growth after 48 hours. Assessment and Plan (1) Hypoxia: Status: Acute (2) COPD (chronic obstructive pulmonary disease): Status: Acute Plan d4 73yo M with no previously known chronic medical conditions but only recently started seeing a PCP presented with dyspnea + productive cough admitted for hypoxia due to COPD/PNA acute hypoxic respiratory failure - wean O2 as tolerated; currently requires 2-3L with ambulation PNA - PCT decreasing, follow sputum culture [growing GNRs], continue ceftriaxone + azithromcyin started 07/22/23 COPD exacerbation - provisional diagnosis, needs Pulm f/u + PCPs [has appointment back at home in [place]], continue steroids + nebs, also on Breo HTN - increased amlodipine, start lisinopril VTE ppx - LMWH dispo - eventual home In my clinical judgment, the patient requires continued inpatient hospitalization for the following reasons: uncontrolled HTN, hypoxia Total time managing care of this patient today: 35 minutes. Quality Stroke Does the patient have a stroke diagnosis?: No VTE Prior VTE?: No VTE Risk Level:: Medical - moderate - high VTE Device Contraindication: Treatment Not Indicated VTE Drug Contraindication: N/A - Med Ordered
--- NOTE | 2023-07-25 14:15 | MHC.CM.PN ---
Patient is not yet medically cleared for dc (uncontrolled HTN); home is the goal and CM will continue to follow.
[2023-07-25] MEDS: Enoxaparin Sodium 40 MG/0.4 ML SYRINGE SUBCUT (18:28)
[2023-07-25] MEDS: LORazepam 0.5 MG TABLET PO (23:33)
[2023-07-25] MEDS: Melatonin 3 MG TABLET 6 MG PO (23:33)
[2023-07-26] VITALS (9 sets, daily range): BP systolic 143–168; BP diastolic 65–80; PULSE 71–86; RESP 18–20; TEMP 36.2–36.7; O2SAT 92–95
--- NOTE | 2023-07-26 | ECG_ITS ---
Test Reason : QTC CHECK Blood Pressure : / mmHG Vent. Rate : 077 BPM Atrial Rate : 077 BPM P-R Int : 132 ms QRS Dur : 122 ms QT Int : 430 ms P-R-T Axes : 077 090 057 degrees QTc Int : 486 ms Sinus rhythm with Premature atrial complexes Right bundle branch block Abnormal ECG When compared with ECG of 22-JUL-2023 15:35, Inverted T waves have replaced nonspecific T wave abnormality in Anterior leads Referred By: Aditi Del Toro Electronically Signed By:POLLY COY MD
[2023-07-26] MEDS: Albuterol/Iprat 2.5/0.5MG 3 ML AMPUL.NEB INHALE ×3 (07:56→19:17)
[2023-07-26] MEDS: Fluticasone/Vilanterol 100/25 BLST.W.DEV 1 PUFF INHALE (07:56)
[2023-07-26] MEDS: amLODIPine Besylate 10 MG TABLET PO (07:59)
[2023-07-26] MEDS: lisinopriL 5 MG TABLET PO (07:59)
[2023-07-26] MEDS: Loratadine 10 MG TABLET PO (07:59)
[2023-07-26] MEDS: Nicotine 21 MG PATCH.TD24 TRANSDERMA (07:59)
[2023-07-26] MEDS: predniSONE 20 MG TABLET 40 MG PO (07:59)
[2023-07-26] MEDS: 0.9 % Sodium Chloride Flush 3 ML SYRINGE IVFLUSH ×3 (08:00→22:14)
[2023-07-26] MEDS: levoFLOXacin 750 MG TABLET PO (08:05)
--- NOTE | 2023-07-26 10:25 | MHC.CM.PN ---
Per ROUNDS discussion, Patient is still hypoxic and will need a repeat home O2 eval prior to dc. Home/self care with possible new O2 is the plan and CM will continue to follow.Patient's Son will transport home to [place].
--- NOTE | 2023-07-26 11:46 | P.PNIM_ITS ---
Subjective Subjective Date of Service: 07/26/23 Interval History: dyspnea with exertion SaO2 88-91% at rest coughing sputum growing Pseudomonas Review of Systems Review of Systems: Yes all other systems are reviewed and are negative Physical Exam 2 Vital Signs: Vital Signs: Last Vital Signs Temp 97.1 F 07/26/23 07:33 Pulse 71 07/26/23 11:16 Resp 20 07/26/23 11:16 BP 164/80 H 07/26/23 07:33 Pulse Ox 92 07/26/23 07:33 O2 Del Method Room Air 07/26/23 07:33 O2 Flow Rate 2 07/24/23 19:43 Oxygen Flow Rate 2 07/22/23 14:25 BMI result Body Mass Index 19.5 Gen: in no acute distress HEENT: sclera anicteric, moist mucus membranes Neck: supple Lungs: diminished Heart: regular rate and rhythm, no murmurs Abd: soft, non-tender, non-distended Ext: no edema Skin: warm/well-perfused Neuro: alert and oriented x3, no focal findings Psych: appropriate affect Objective Data Active Medications Acetaminophen (Acetaminophen 325 Mg Tablet) 650 mg PO Q6H PRN PRN Reason: Pain, Mild (Pain Scale 1-3) Albuterol Sulfate (Albuterol Sulfate 90 Mcg 8 Gm Inhaler) 1 puff INHALE RQ4H PRN PRN Reason: sob Albuterol/Ipratropium (Albuterol/Iprat 2.5/0.5mg 3 Ml Ampul.Neb) 3 ml INHALE RQ4H WHILE AWAKE [facility] Last Admin: 07/26/23 11:15 Dose: 3 ml Documented By: TALI Amlodipine Besylate (Amlodipine Besylate 10 Mg Tablet) 10 mg PO DAILY [facility]; Protocol Last Admin: 07/26/23 07:59 Dose: 10 mg Documented By: SUMEET Docusate Sodium (Docusate Sodium 100 Mg Capsule) 100 mg PO DAILY PRN PRN Reason: Constipation Enoxaparin Sodium (Enoxaparin Sodium 40 Mg/0.4 Ml Syringe) 40 mg SUBCUT Q24H [facility] Last Admin: 07/25/23 18:28 Dose: 40 mg Documented By: CAITLIN Fluticasone/Vilanterol (Fluticasone/Vilanterol 100/25 Blst.W.Dev) 1 puff INHALE RDAILY [facility] Last Admin: 07/26/23 07:56 Dose: 1 puff Documented By: TALI Guaifenesin (Guaifenesin 200 Mg/10 Ml 10 Ml Liquid) 10 ml PO Q6H PRN PRN Reason: Cough Guaifenesin/Dextromethorphan (Guaifenesin Dm 600/30 1 Tab Tab.Er.12h) 1 tab PO BID PRN PRN Reason: Cough Last Admin: 07/24/23 21:16 Dose: 1 tab Documented By: STEPHANIE Levofloxacin (Levofloxacin 750 Mg Tablet) 750 mg PO Q24H [facility] Last Admin: 07/26/23 08:05 Dose: 750 mg Documented By: SUMEET Lisinopril (Lisinopril 5 Mg Tablet) 5 mg PO DAILY [facility]; Protocol Last Admin: 07/26/23 07:59 Dose: 5 mg Documented By: SUMEET Loratadine (Loratadine 10 Mg Tablet) 10 mg PO DAILY [facility] Last Admin: 07/26/23 07:59 Dose: 10 mg Documented By: SUMEET Lorazepam (Lorazepam 0.5 Mg Tablet) 0.5 mg PO Q4H PRN PRN Reason: Anxiety Last Admin: 07/25/23 23:33 Dose: 0.5 mg Documented By: LEONOR Melatonin (Melatonin 3 Mg Tablet) 6 mg PO BEDTIME PRN PRN Reason: Insomnia Last Admin: 07/25/23 23:33 Dose: 6 mg Documented By: LEONOR Nicotine (Nicotine 21 Mg Patch.Td24) 21 mg TRANSDERMA DAILY [facility] Last Admin: 07/26/23 07:59 Dose: 21 mg Documented By: SUMEET Nicotine Polacrilex (Nicotine Polacrilex 2 Mg Gum) 4 mg BUCCAL Q1H PRN PRN Reason: Nicotine Cravings Ondansetron HCl (Ondansetron Hcl 4 Mg/2 Ml Vial) 4 mg IVPUSH Q8H PRN PRN Reason: Nausea and Vomiting Prednisone (Prednisone 20 Mg Tablet) 40 mg PO DAILY [facility] Last Admin: 07/26/23 07:59 Dose: 40 mg Documented By: SUMEET Sodium Chloride (0.9 % Sodium Chloride Flush 3 Ml Syringe) 3 ml IVFLUSH QSHIFT [facility] Last Admin: 07/26/23 08:00 Dose: 3 ml Documented By: SUMEET Labs 07/25/23 09:12 07/22/23 14:54 Microbiology Microbiology Results: Microbiology 07/23/23 13:25 Gram Stain - Final Sputum - Expectorated Sputum Culture - Final Pseudomonas aeruginosa Assessment and Plan (1) Hypoxia: Status: Acute (2) COPD (chronic obstructive pulmonary disease): Status: Acute Plan d5 73yo M with no previously known chronic medical conditions but only recently started seeing a PCP presented with dyspnea + productive cough admitted for hypoxia due to COPD/PNA acute hypoxic respiratory failure - wean O2 as tolerated; currently requires 2-3L with ambulation and may need to go home with it as well PNA - PCT decreasing. Sputum Cx growing Pseudomonas aeruginosa, suggestive of severe COPD. Got ceftriaxone/azithromcyin 07/22-07/25. Change to levofloxacin 07/26-. Check EKG for QTc. COPD exacerbation - provisional diagnosis, needs Pulm f/u + PCPs [has appointment back at home in [place]], continue steroids + nebs, also on Breo HTN - increased amlodipine, started lisinopril VTE ppx - LMWH dispo - eventual home In my clinical judgment, the patient requires continued inpatient hospitalization for the following reasons: hypoxia Total time managing care of this patient today: 35 minutes. Quality Stroke Does the patient have a stroke diagnosis?: No VTE Prior VTE?: No VTE Risk Level:: Medical - moderate - high VTE Device Contraindication: Treatment Not Indicated VTE Drug Contraindication: N/A - Med Ordered
[2023-07-26] MEDS: Enoxaparin Sodium 40 MG/0.4 ML SYRINGE SUBCUT (17:48)
[2023-07-27] VITALS (11 sets, daily range): BP systolic 136–166; BP diastolic 69–90; PULSE 67–102; RESP 18–20; TEMP 36.2–36.8; O2SAT 87–889
[2023-07-27 07:03] LABS: VBG Base Excess 12.3 mmol/L; VBG HCO3 37 mmol/L (22-26); VBG pCO2 47 mmHg; VBG pO2 97 mmHg
[2023-07-27 07:05] LABS: Venous Blood Gas Refer to POC result
[2023-07-27 07:37] LABS: Anion Gap 11 (12-20); Blood Urea Nitrogen 16 mg/dL (9-16); Calcium 8.8 mg/dL (8.4-10.2); Carbon Dioxide 32 mmol/L (22-29); Chloride 101 mmol/L (96-108); Creatinine Clr Calc Pharmacy 89.1; Estimated Glomerular Filt Rate > 60; Glucose Random 86 mg/dL (60-115); Potassium 3.3 mmol/L (3.3-5.1); Sodium 141 mmol/L (135-145)
[2023-07-27] MEDS: Fluticasone/Vilanterol 100/25 BLST.W.DEV 1 PUFF INHALE (08:20)
[2023-07-27] MEDS: Albuterol/Iprat 2.5/0.5MG 3 ML AMPUL.NEB INHALE (08:20)
--- NOTE | 2023-07-27 09:50 | P.DS_ITS ---
DS: Providers Provider Date of Service: 07/28/23 Date of admission: 07/22/23 18:04 Date of discharge: 07/28/23 Primary care physician: Nonstaff Physician Please cc pt's primary care doctor: Jevon Cullen MD [address], [address] [place] [address] DS: Diagnosis Discharge Diagnosis (1) Acute respiratory failure with hypoxia: Status: Acute (2) COPD exacerbation: Status: Acute (3) Pneumonia: Status: Acute (4) Infection due to Pseudomonas species: Status: Acute (5) Essential hypertension: Status: Acute DS: Summary Hospital Course Hospital Course: from admission H+P by hospitalist USHA Keith, 07/22/23: Pt is a 73-year-old male with no significant PHM though only recently saw PCP for the first time in 10+ years who presents to the ED with?worsening SOB, productive cough, and malaise. Patient states a few weeks ago he saw a PCP for the 1st time in many years, and was started on a 14 day trial of Trelegy for suspected COPD. Patient is a lifelong smoker who started smoking at 13 years old and has an approximately 120+ pack-year smoking history. Patient states that a few days after starting Trelegy he began having worsening SOB and cough with increased mucus production. Patient immediately stopped using inhaler the symptoms continue to worsen. Patient states he has not been sleeping due to cough and feeling increased weakness and malaise. Reports he is never felt this ill before. EMS state patient was satting at 86% on RA when they arrived. Patient is not on home O2. Patient denies fever, chills, nausea, vomiting, abdominal pain. Denies chest pain/pressure, palpitations In the ED pt was tachycardic up to 161, tachypneic up to 30, and hypertensive up to 166/65, satting as low as 86% on RA. Labs were significant for leukocytosis of 16.4 otherwise grossly unremarkable. Stable H& H. No electrolyte abnormalities. Renal function WNL. Lactic acid WNL at 1.8. Hepatic function WNL. Troponin and BNP WNL. TSH WNL. Patient tested negative for COVID, and influenza type a and B. CXR showed hyperinflated lungs possibly secondary to COPD, though no focal infiltrate, effusion, or pneumothorax. CTA of chest found no evidence of PE, but did show moderate to severe central lobular and paraseptal emphysema, as well as bilateral bronchial wall thickening with multiple foci of occlusive debris suggesting aspirin material and or in suspected secretions. Also found areas of interstitial and airspace disease suggestive of infiltrates and/or atelectasis. Initial EKG demonstrated sinus tachycardia of 158 with RBBB while repeat EKG showed sinus rhythm with marked sinus arrhythmia and RBBB. Pt was treated with acetaminophen, Solu-Medrol, ceftriaxone, and azithromycin, levalbuterol, IVF, and metoprolol. Pt will be admitted to the hospital for treatment and further evaluation of acute hypoxic respiratory failure in the setting COPD exacerbation. 73yo M with no previously known chronic medical conditions but only recently started seeing a PCP back home in [place]. He presented with dyspnea + productive cough while visititing family in [place]. He was admitted for hypoxia due to new diagnosis of COPD. He was also found to have PNA with Pseudomonas in the spu cata. Oxygen was gradually weaned but he will still require 2L of O2 with ambulation at home. He was treated with ceftriaxone and azithromcyin until Pseudomonas grew from the sputum. He was transitioned to levofloxacin and got 3 days of therapy in the hospital; he will need 2 more days upon discharge [QTc was 486 ms]. As for COPD, he was treated with 5 days of steroids and was started on Breo and prn albuterol. He will need PFTs. He was also noted to be persistently hypertensive and was started on amlodipine and lisinopril for BP control. He should have repeat BP checks with his PCP and will need a BMP rechecked in 1-2 weeks. Smoking cessation was counseled and he was prescribed NRT to support this goal. Time Attestation Discharge coordination time: Greater than 30 minutes Quality: Safe Use of Opioids Does Pt have an Active Cancer Diagnosis on the Problem List?: No Quality: Stroke Does the patient have a stroke diagnosis?: No Physical Exam Vital Signs: Vital Signs: Temp Pulse Resp BP Pulse Ox O2 Del Method O2 Flow Rate 97.7 F 75 16 156/83 H 92 Room Air 2 07/28/23 07:19 07/28/23 07:38 07/28/23 07:38 07/28/23 07:19 07/28/23 07:19 07/28/23 07:19 07/27/23 15:33 Oxygen Flow Rate 2 07/22/23 14:25 BMI result Body Mass Index 19.5 Gen: in no acute distress HEENT: sclera anicteric, moist mucus membranes Neck: supple Lungs: diminished Heart: regular rate and rhythm, no murmurs Abd: soft, non-tender, non-distended Ext: no edema Skin: warm/well-perfused Neuro: alert and oriented x3, no focal findings Psych: appropriate affect DS: Data Data Completed and Pending Completed studies during hospitalization [Text1]: Laboratory Results WBC 13.4 X10*3/uL (4.8-10.8) H 07/25/23 09:12 RBC 4.91 X10*6/uL (4.60-5.80) 07/25/23 09:12 Hgb 14.1 g/dl (14.0-18.0) 07/25/23 09:12 Hct 42.4 % (42.0-52.0) 07/25/23 09:12 MCV 86.4 fL (80.0-98.0) 07/25/23 09:12 MCH 28.7 pg (27.0-33.0) 07/25/23 09:12 MCHC 33.3 g/dl (31.0-36.0) 07/25/23 09:12 RDW 16.4 % (11.0-16.0) H 07/25/23 09:12 Plt Count 206 X10*3/uL (160-400) 07/25/23 09:12 MPV 11.3 fL (9.4-12.4) 07/25/23 09:12 Immature Gran % (Auto) 0.4 % (0.0-0.4) 07/22/23 14:54 Neut % (Auto) 82.9 % (45-73) H 07/22/23 14:54 Lymph % (Auto) 7.9 % (20-40) L 07/22/23 14:54 [place] % (Auto) 8.4 % (2-11) 07/22/23 14:54 Eos % (Auto) 0.1 % (0-4) 07/22/23 14:54 Baso % (Auto) 0.3 % (0-2) 07/22/23 14:54 Lymph # (Auto) 1.3 X10*3/uL (1.2-4.9) 07/22/23 14:54 [place] # (Auto) 1.4 X10*3/uL (0.1-1.2) H 07/22/23 14:54 Eos # (Auto) 0.0 X10*3/uL (0.0-0.4) 07/22/23 14:54 Baso # (Auto) 0.1 X10*3/uL (0.0-0.2) 07/22/23 14:54 Abs Immat Gran (auto) 0.07 X10*3/uL (0.00-0.03) H 07/22/23 14:54 Absolute Neuts (auto) 13.6 x10*3/uL (2.0-8.3) H 07/22/23 14:54 Absolute Nucleated RBC 0.000 X10*3/uL (0.0-0.012) 07/25/23 09:12 Nucleated RBC % (auto) 0.0 /100WBC (0.0-0.2) 07/25/23 09:12 Hold Purple Top SEE NOTE 07/27/23 06:51 PT 14.3 SEC (11.1-13.3) H 07/22/23 14:54 INR 1.2 (0.9-1.1) H 07/22/23 14:54 VBG pH 7.50 (7.32-7.43) H 07/27/23 06:56 VBG pCO2 47 mmHg 07/27/23 06:56 VBG pO2 97 mmHg 07/27/23 06:56 VBG HCO3 37 mmol/L (22-26) H 07/27/23 06:56 VBG O2 Saturation 100.0 % 07/27/23 06:56 VBG Base Excess 12.3 mmol/L 07/27/23 06:56 Sodium 141 mmol/L (135-145) 07/27/23 06:51 Potassium 3.3 mmol/L (3.3-5.1) 07/27/23 06:51 Chloride 101 mmol/L (96-108) 07/27/23 06:51 Carbon Dioxide 32 mmol/L (22-29) H 07/27/23 06:51 Anion Gap 11 (12-20) L 07/27/23 06:51 BUN 16 mg/dL (9-16) 07/27/23 06:51 Creatinine 0.70 mg/dL (0.5-1.4) 07/27/23 06:51 Estim Creat Clear Calc 89.1 07/27/23 06:51 Estimated GFR > 60 07/27/23 06:51 Random Glucose 86 mg/dL (60-115) 07/27/23 06:51 Lactic Acid 1.8 mmol/L (0.5-2.0) 07/22/23 14:54 Calcium 8.8 mg/dL (8.4-10.2) D 07/27/23 06:51 Magnesium 2.0 mg/dL (1.6-2.6) 07/22/23 14:54 Total Bilirubin 0.5 mg/dL (0.0-1.0) 07/22/23 14:54 Direct Bilirubin 0.2 mg/dL (0.0-0.5) 07/22/23 14:54 AST 15 U/L (5-37) 07/22/23 14:54 ALT 16 U/L (0-40) 07/22/23 14:54 Alkaline Phosphatase 63 U/L (39-117) 07/22/23 14:54 Troponin I High Sens 16.5 ng/L (<3.5-35.0) 07/22/23 14:54 B-Natriuretic Peptide 74 pg/mL (<100) 07/22/23 14:54 Total Protein 7.3 g/dL (6.5-8.0) 07/22/23 14:54 Albumin 3.5 g/dL (3.5-5.0) 07/22/23 14:54 Lipase 6 U/L (8-78) L 07/22/23 14:54 Procalcitonin 0.16 ng/mL 07/25/23 09:11 TSH 1.81 uIU/mL (0.32-4.0) 07/22/23 14:54 Urine Color Dark Yellow 07/22/23 16:38 Urine Appearance Clear 07/22/23 16:38 Urine pH 5.5 (5.0-9.0) 07/22/23 16:38 Ur Specific [place] 1.020 (1.005-1.025) 07/22/23 16:38 Urine Protein 30 (1+) mg/dL (Neg-Trace) H 07/22/23 16:38 Urine Glucose (UA) Negative mg/dL (Negative) 07/22/23 16:38 Urine Ketones 15 mg/dL (Negative) 07/22/23 16:38 Urine Blood Negative (Negative) 07/22/23 16:38 Urine Nitrite Negative (Negative) 07/22/23 16:38 Ur Leukocyte Esterase Negative (Negative) 07/22/23 16:38 Urine RBC 0-2 /HPF (0-2) 07/22/23 16:38 Urine WBC 0-5 /HPF (0-5) 07/22/23 16:38 Ur Squamous Epith Cells 3-5 /HPF (0-2) 07/22/23 16:38 Urine Bacteria None Seen (None Seen) 07/22/23 16:38 Hyaline Casts 11-20 /LPF (0-2) 07/22/23 16:38 COVID-19 (DEE) Negative (Negative) 07/22/23 14:54 COVID-19 Clin Com See Note 07/22/23 14:54 Influenza Type A (DILLON) Negative (Negative) 07/22/23 14:54 Influenza Type B (DILLON) Negative (Negative) 07/22/23 14:54 Influenza A & B Note See Note 07/22/23 14:54 Impressions Chest X-Ray 07/22/23 15:32 FINDINGS/IMPRESSION: The lungs may be hyperinflated, raising the possibility of COPD. Mild diffuse interstitial prominence. It is uncertain whether this represents artifactual crowding of the interstitium versus true infiltrate. No focal infiltrate, effusion, or pneumothorax is appreciated. The heart appears normal in size. The aorta is mildly atherosclerotic. Chest CTA 07/22/23 16:37 IMPRESSION: No evidence of pulmonary embolism. Moderate to severe centrilobular and paraseptal emphysema. Bilateral bronchial wall thickening. Multiple foci of occlusive debris within peripheral bronchi, suggesting aspirated material and/or inspissated secretions. Associated small regions of interstitial and airspace disease most notably involving the right middle and left lower lobe and, to a lesser extent, the right lower lobe, suggesting infiltrates and/or atelectasis. Mild mediastinal and bilateral hilar adenopathy, probably reactive. VTE: negative Microbiology 07/22/23 14:57 Blood - Venous Blood Culture - Final No growth after 5 days. 07/22/23 14:57 Blood - Venous Blood Culture - Final No growth after 5 days. 07/23/23 13:25 Sputum - Expectorated Gram Stain - Final 07/23/23 13:25 Sputum - Expectorated Sputum Culture - Final Pseudomonas aeruginosa Discharge Plan Discharge Anticipated Discharge Date/Time: 07/28/23 09:00 Patient Disposition: Home, Self-Care Discharge Diagnosis: Hypoxia, COPD, pneumonia hypertension Referrals: Physician,Nonstaff [Primary Care Provider] - 1 Week Discharge Medications: New amlodipine 10 mg Tablet 10 mg PO DAILY Qty: 30 0RF Protocol: Hold for SBP< HOLD for SBP < : 90 lisinopril 10 mg Tablet 10 mg PO DAILY Qty: 30 0RF Protocol: Hold for SBP< HOLD for SBP < : 90 levofloxacin 750 mg Tablet 750 mg PO Q24H Qty: 2 0RF albuterol sulfate [Ventolin HFA] 90 mcg/actuation Hfa Aerosol Inhaler 2 puff inhalation RQ4H PRN (Reason: sob) Qty: 8.5 0RF fluticasone furoate-vilanterol [Breo Ellipta] 100-25 mcg/dose Blister With Device 1 inh inhalation RDAILY Qty: 30 0RF Continued nicotine (polacrilex) 4 mg Gum 4 mg BUCCAL Q1H PRN (Reason: Nicotine Cravings) Qty: 110 0RF nicotine 21 mg/24 hr Patch 24 Hour 1 patch TRANSDERMAL DAILY Qty: 28 0RF Discharge Orders: Discharge Order (Routine); Ordered 07/28/23 Ordered By: Aditi Del Toro Diet: Advance to usual diet Activity on Discharge: As tolerated Stand Alone Forms: Patient Portal Discharge page Care Plan Goals: pulmonary health Health Concerns: Hypoxia, COPD, pneumonia hypertension Plan of Treatment: completed prednisone [steroid] use Breo inhaler 1 puff daily for prevention/control, albuterol inhaler 2 puffs every 4 hours as needed for rescue take levofloxacin 750 mg daily for 2 more days quit smoking; use nicotine patch and gum to help use oxygen 2L with ambulation only take amlodipine 10 mg daily take lisinopril 10 mg daily follow a low-sodium DASH diet follow up with your primary care doctor JOSE ANGEL. To do: - obtain pulmonary function tests when recovered - recheck BMP in 1-2 weeks Assessment: See Discharge Summary. Patient Instructions: DASH Eating Plan (DC)
--- NOTE | 2023-07-27 09:53 | P.PNIM_ITS ---
Subjective Subjective Date of Service: 07/27/23 Interval History: coughing up copious sputum today's rest SaO2 94-96% home O2 re-eval pending no fever Review of Systems Review of Systems: Yes all other systems are reviewed and are negative Physical Exam 2 Vital Signs: Vital Signs: Last Vital Signs Temp 98.2 F 07/27/23 07:00 Pulse 73 07/27/23 08:35 Resp 20 07/27/23 08:35 BP 160/80 H 07/27/23 07:00 Pulse Ox 93 07/27/23 07:00 O2 Del Method Nasal Cannula 07/27/23 07:00 O2 Flow Rate 2 07/27/23 07:00 Oxygen Flow Rate 2 07/22/23 14:25 BMI result Body Mass Index 19.5 Gen: in no acute distress HEENT: sclera anicteric, moist mucus membranes Neck: supple Lungs: diminished Heart: regular rate and rhythm, no murmurs Abd: soft, non-tender, non-distended Ext: no edema Skin: warm/well-perfused Neuro: alert and oriented x3, no focal findings Psych: appropriate affect Objective Data Active Medications Acetaminophen (Acetaminophen 325 Mg Tablet) 650 mg PO Q6H PRN PRN Reason: Pain, Mild (Pain Scale 1-3) Albuterol Sulfate (Albuterol Sulfate 90 Mcg 8 Gm Inhaler) 1 puff INHALE RQ4H PRN PRN Reason: sob Albuterol/Ipratropium (Albuterol/Iprat 2.5/0.5mg 3 Ml Ampul.Neb) 3 ml INHALE RQ4H WHILE AWAKE [facility] Last Admin: 07/27/23 08:20 Dose: 3 ml Documented By: JULIA Amlodipine Besylate (Amlodipine Besylate 10 Mg Tablet) 10 mg PO DAILY [facility]; Protocol Last Admin: 07/26/23 07:59 Dose: 10 mg Documented By: SUMEET Docusate Sodium (Docusate Sodium 100 Mg Capsule) 100 mg PO DAILY PRN PRN Reason: Constipation Enoxaparin Sodium (Enoxaparin Sodium 40 Mg/0.4 Ml Syringe) 40 mg SUBCUT Q24H [facility] Last Admin: 07/26/23 17:48 Dose: 40 mg Documented By: SUMEET Fluticasone/Vilanterol (Fluticasone/Vilanterol 100/25 Blst.W.Dev) 1 puff INHALE RDAILY [facility] Last Admin: 07/27/23 08:20 Dose: 1 puff Documented By: JULIA Guaifenesin (Guaifenesin 200 Mg/10 Ml 10 Ml Liquid) 10 ml PO Q6H PRN PRN Reason: Cough Guaifenesin/Dextromethorphan (Guaifenesin Dm 600/30 1 Tab Tab.Er.12h) 1 tab PO BID PRN PRN Reason: Cough Last Admin: 07/24/23 21:16 Dose: 1 tab Documented By: STEPHANIE Levofloxacin (Levofloxacin 750 Mg Tablet) 750 mg PO Q24H [facility] Last Admin: 07/26/23 08:05 Dose: 750 mg Documented By: SUMEET Lisinopril (Lisinopril 10 Mg Tablet) 10 mg PO DAILY [facility]; Protocol Loratadine (Loratadine 10 Mg Tablet) 10 mg PO DAILY [facility] Last Admin: 07/26/23 07:59 Dose: 10 mg Documented By: SUMEET Lorazepam (Lorazepam 0.5 Mg Tablet) 0.5 mg PO Q4H PRN PRN Reason: Anxiety Last Admin: 07/25/23 23:33 Dose: 0.5 mg Documented By: LEONOR Melatonin (Melatonin 3 Mg Tablet) 6 mg PO BEDTIME PRN PRN Reason: Insomnia Last Admin: 07/25/23 23:33 Dose: 6 mg Documented By: LEONOR Nicotine (Nicotine 21 Mg Patch.Td24) 21 mg TRANSDERMA DAILY [facility] Last Admin: 07/26/23 07:59 Dose: 21 mg Documented By: SUMEET Nicotine Polacrilex (Nicotine Polacrilex 2 Mg Gum) 4 mg BUCCAL Q1H PRN PRN Reason: Nicotine Cravings Ondansetron HCl (Ondansetron Hcl 4 Mg/2 Ml Vial) 4 mg IVPUSH Q8H PRN PRN Reason: Nausea and Vomiting Prednisone (Prednisone 20 Mg Tablet) 40 mg PO DAILY [facility] Last Admin: 07/26/23 07:59 Dose: 40 mg Documented By: SUMEET Sodium Chloride (0.9 % Sodium Chloride Flush 3 Ml Syringe) 3 ml IVFLUSH QSHIFT [facility] Last Admin: 07/26/23 22:14 Dose: 3 ml Documented By: KELBY Labs 07/25/23 09:12 07/27/23 06:51 Labs: Laboratory Results - last 24 hr 07/27/23 07/27/23 06:51 06:56 Hold Purple Top SEE NOTE VBG pH 7.50 H VBG pCO2 47 VBG pO2 97 VBG HCO3 37 H VBG O2 Saturation 100.0 VBG Base Excess 12.3 Anion Gap 11 L Estim Creat Clear Calc 89.1 Estimated GFR > 60 Random Glucose 86 Calcium 8.8 D Microbiology Microbiology Results: Microbiology 07/23/23 13:25 Gram Stain - Final Sputum - Expectorated Sputum Culture - Final Pseudomonas aeruginosa Assessment and Plan (1) Hypoxia: Status: Acute (2) COPD (chronic obstructive pulmonary disease): Status: Acute Plan d6 73yo M with no previously known chronic medical conditions but only recently started seeing a PCP presented with dyspnea + productive cough admitted for hypoxia due to COPD/PNA found to have Pseudomonas in sputum acute hypoxic respiratory failure - wean O2 as tolerated; currently requires 2-3L with ambulation and may need to go home with it as well; home O2 re-eval today PNA - PCT decreased. Sputum Cx growing Pseudomonas aeruginosa, suggestive of severe COPD. Got ceftriaxone/azithromcyin 07/22-07/25. Changed to levofloxacin 07/26-07/30. QTc 486 ms. COPD exacerbation - new diagnosis; needs Pulm f/u + PCPs [[place] appointment back at home in [place]- PCP is Jevon Cullen MD, at [facility] in [place]], complete prednisone today, change nebs to inhaler treatments, Breo HTN - continue amlodipine, increase lisinopril VTE ppx - LMWH dispo - to go home tomorrow- may need O2 In my clinical judgment, the patient requires continued inpatient hospitalization for the following reasons: hypoxia Total time managing care of this patient today: 35 minutes. Quality Stroke Does the patient have a stroke diagnosis?: No VTE Prior VTE?: No VTE Risk Level:: Medical - moderate - high VTE Device Contraindication: Treatment Not Indicated VTE Drug Contraindication: N/A - Med Ordered
[2023-07-27] MEDS: levoFLOXacin 750 MG TABLET PO (10:28)
[2023-07-27] MEDS: amLODIPine Besylate 10 MG TABLET PO (10:28)
[2023-07-27] MEDS: lisinopriL 10 MG TABLET PO (10:28)
[2023-07-27] MEDS: Loratadine 10 MG TABLET PO (10:29)
[2023-07-27] MEDS: Nicotine 21 MG PATCH.TD24 TRANSDERMA (10:29)
[2023-07-27] MEDS: 0.9 % Sodium Chloride Flush 3 ML SYRINGE IVFLUSH ×2 (10:32→17:54)
--- NOTE | 2023-07-27 12:09 | MHC.CLN ---
F/U PO INTAKE 75-100% DIET RX: REGULAR-APPROPRIATE PT RECEIVING MAGIC CUP TID TO INCREASE KCALS MONITOR PO INTAKE AND ENCOURAGE SUPPLEMENTS
--- NOTE | 2023-07-27 12:19 | MHC.CM.PN ---
Second IMM given 07/27. EMR reviewed and per MD rounds, pt is going to D/C home tomorrow, his son will drive him home to [place]. Pt will need another home O2 eval prior to D/C.
[2023-07-27] MEDS: Enoxaparin Sodium 40 MG/0.4 ML SYRINGE SUBCUT (17:43)
[2023-07-28 03:10] VITALS: BP 155/83; PULSE 67; RESP 20; TEMP 36.6; O2SAT 94
[2023-07-28 07:19] VITALS: BP 156/83; PULSE 73; RESP 17; TEMP 36.5; O2SAT 92
[2023-07-28] MEDS: Fluticasone/Vilanterol 100/25 BLST.W.DEV 1 PUFF INHALE (07:36)
[2023-07-28 07:38] VITALS: PULSE 75; RESP 16; O2SAT 90
[2023-07-28] MEDS: Loratadine 10 MG TABLET PO (08:17)
[2023-07-28] MEDS: levoFLOXacin 750 MG TABLET PO (08:17)
[2023-07-28] MEDS: 0.9 % Sodium Chloride Flush 3 ML SYRINGE IVFLUSH (08:17)
[2023-07-28] MEDS: lisinopriL 10 MG TABLET PO (08:18)
[2023-07-28] MEDS: amLODIPine Besylate 10 MG TABLET PO (08:18)
[2023-07-28] MEDS: Nicotine 21 MG PATCH.TD24 TRANSDERMA (08:18)
--- NOTE | 2023-07-28 11:08 | P.CDIM_ITS ---
PROVIDER RESPONSE TEXT: To clarify, the appropriate diagnosis supported by the clinical indicators: Underweight QUERY TEXT: PHYSICIAN'S DOCUMENTATION REQUEST Date of Query: 07/26/2023 08:03 AM EST Patient Name: Jesse Florez Admit Date: 07/22/2023 Dear Aditi Del Toro, A review of the medical record indicates additional documentation may be needed. Please review below and update the documentation accordingly. Clinical Indicators: Clinical nutrition notes date - Patient is moderately malnourished with mild depletion of subcut aneous fat and muscle mass. Increased nutritional needs. Recommend adding magic cup TID to increase KCALS. BMI 19.5 65.1kg If possible, please provide an associated diagnosis related to the abnormal BMI, such as: Underweight Malnutrition mild, moderate, severe Anorexia Other (explain) Clinically unable to determine (explain) Thank you, Ofe Arguelles, CCS, CDIS Use of terms such as suspected, likely, concern for, or probable (associated with a specific diagnosi s that is being evaluated, monitored, or treated as if it exists) are acceptable and can be coded in the inpatient se tting, when documented at the time of discharge. Please use your independent medical judgment in providing your response. THIS QUERY IS PART OF THE PERMANENT MEDICAL RECORD
== END 2023-07-28 10:09 | disposition home or self-care (01) | DRG 189 ==
LOC: HO.ED 16:41 → HO.EDOVER 18:21 → HO.IMC 19:56
PROVIDERS: Admitting Provider Student in an Organized Health Care Education/Training Program; Emergency Provider Emergency Medicine; PCP Family Medicine; Visit Provider Family Medicine
DX: J96.01 Acute respiratory failure with hypoxia (principal); J18.9 Pneumonia, unspecified organism; Z68.1 Body mass index [BMI] 19.9 or less, adult; B96.5 Pseudomonas (aeruginosa) (mallei) (pseudomallei) as the cause of diseases classified elsewhere; I10 Essential (primary) hypertension; J43.9 Emphysema, unspecified; R63.6 Underweight; F17.210 Nicotine dependence, cigarettes, uncomplicated; Z20.822 Contact with and (suspected) exposure to COVID-19; Z71.6 Tobacco abuse counseling; Z79.51 Long term (current) use of inhaled steroids; Z79.899 Other long term (current) drug therapy
CPT/HCPCS: 36415; 71045; 71275; 80048; 80076; 81001; 81003; 82803; 83605; 83690; 83735; 83880; 84145; 84443; 84484; 85025; 85027; 85610; 87040; 87070; 87077; 87186; 87205; 87502; 87635; 93005; 94640; 99285; J0360; J0456; J0696; J1650; J1920; J2920; J2930; Q9967

== ENCOUNTER → 2023-07-22 15:35 | Outpatient (BNV) | payer MEDICARE, SELFPAY | PROVIDERS: Admitting Provider Student in an Organized Health Care Education/Training Program; Emergency Provider Emergency Medicine; Visit Provider Internal Medicine Cardiovascular Disease | DX: R00.0 Tachycardia, unspecified (principal) | CPT/HCPCS: 93010 ==

== ENCOUNTER 2023-07-22 18:04 | Outpatient (BNV) | payer MEDICARE, SELFPAY | END 2023-07-26 08:10 | PROVIDERS: Admitting Provider Student in an Organized Health Care Education/Training Program; Emergency Provider Emergency Medicine; Visit Provider Internal Medicine Cardiovascular Disease | DX: I49.1 Atrial premature depolarization (principal); R94.31 Abnormal electrocardiogram [ECG] [EKG] | CPT/HCPCS: 93010 ==

== ENCOUNTER → 2023-07-22 18:04 | Outpatient (BNV) | payer MEDICARE, SELFPAY | PROVIDERS: Admitting Provider Student in an Organized Health Care Education/Training Program; Emergency Provider Emergency Medicine; Visit Provider Internal Medicine | DX: J43.9 Emphysema, unspecified (principal); J96.01 Acute respiratory failure with hypoxia; Z99.81 Dependence on supplemental oxygen | CPT/HCPCS: 99223; 99232; 99239 ==